=== PATIENT | male | born 1970 | race Caucasian/White ===

== ENCOUNTER 2020-08-18 11:21 | Outpatient (RCR) | payer BC, SELFPAY ==
[2013-08-09 09:54] VITALS: BMI 29.7
== END 2020-09-22 23:59 ==
LOC: IMMUN 11:21
PROVIDERS: PCP Family Medicine; Visit Provider Family Medicine
DX: Z23 Encounter for immunization (principal)
CPT/HCPCS: 0001A; 0002A; 91300

== ENCOUNTER 2021-05-31 14:07 | Outpatient (CLI) | payer BC, SELFPAY | END 2021-05-31 23:59 | disposition home or self-care (01) | LOC: LAB 14:08 | PROVIDERS: PCP Family Medicine; Visit Provider Family Medicine | DX: E78.5 Hyperlipidemia, unspecified (principal) ==

== ENCOUNTER 2021-06-04 10:46 | Day surgery (SDC) | payer BC, SELFPAY ==
--- NOTE | 2021-05-31 12:45 | EKG12_ITS ---
Test Reason : PRE OP Blood Pressure : / mmHG Vent. Rate : 085 BPM Atrial Rate : 085 BPM P-R Int : 136 ms QRS Dur : 094 ms QT Int : 374 ms P-R-T Axes : 051 065 046 degrees QTc Int : 445 ms Normal sinus rhythm Normal ECG Confirmed by MAHNAZ SUH, URVASHI ([id number]), video editor ARPIT VARGAS ([id number]) on 06/01/2021 1:50:28 PM Referred By: Reid Holloway Confirmed By:URVASHI JOYA MD
[2021-05-31 13:28] LABS: Hematocrit 41.7 % (40-54); Hemoglobin 15.4 g/dL (13.0-16.5); Mean Corp Hgb Conc 36.9 g/dL (32-36); Mean Corpuscular Hgb 36.7 pg (27.0-32.0); Mean Corpuscular Volume 99.3 fL (80-94); Mean Platelet Vol. 9.9 fl (6.2-12.0); Platelet Count 246 K/mm3 (150-450); RBC Distribution Width CV 11.8 % (11.6-14.6); RBC Distribution Width SD 43.3 fl (35.1-43.9); White Blood Count 8.8 K/mm3 (4.4-11.0)
[2021-06-04] VITALS (8 sets, daily range): BP systolic 148–178; BP diastolic 98–118; PULSE 79–100; RESP 16; TEMP 36.6–37.4; O2SAT 92–98; BMI 32.6
--- NOTE | 2021-06-04 | HERN_PTH ---
PATIENT: WARD ALEXIS LOC: [facility] [place]#:[id number] AGE/SX: 51/M ROOM: RE06/04/[address]: Dr. Reid Holloway MD : 1970 BED: DIS: 06/04/2021 SPEC #: [id number] RECD: 06/04/21 15:22 STATUS: ELINA OLERAYTaye #: [id number] DAVINA: 06/04/21 00:[address]: Reid Holloway DEPT: SURGICAL PATHOLOGY RECD BY: Abelino Finley ENTERED: 06/05/21 08:16 SP TYPE: Hernia OTHR DR: Víctor Huerta MD Tissues: HERNIA Procedures: Surgery Specimen Level II HEADER OPERATION: Laparoscopic right inguinal hernia repair with mesh PRE-OP DIAGNOSIS: Inguinal hernia of right side TISSUE SUBMITTED: Hernia sac and contents MICROSCOPIC DIAGNOSIS Hernia sac and contents: A piece of fibroadipose tissue, clinically hernia sac and contents. SJ:gogo 06/06/2021 MICROSCOPIC DESCRIPTION Slides are reviewed. GROSS DESCRIPTION Received in fixative is one container labeled with the patient's name and designated umbilical hernia sac and contents. The specimen consists of pieces of adipose tissue measuring 2 x 1.5 x 0.3 cm. The entire specimen is submitted in one cassette. / SJ:gogo 06/05/2021 TC:5 CPT: 41837
--- NOTE | 2021-06-04 11:05 | PCM.HP.BLA ---
History and Physical Date of Admission: 06/04/21 [facility] Visit Reasons: UMBILICAL/ INGUINAL HERNIA Chief Complaint: umbilical and right inguinal hernia Chart Snatcher Required: No Is patient in pain?: No Allergies No Known Allergies Allergy (Verified 04/16/21 13:52) Medications omeprazole 40 mg capsule,delayed release 40 mg PO DAILY #30 cap 04/16/21 [Rx Confirmed 04/16/21] tamsulosin 0.4 mg capsule 0.4 mg PO QHS #30 cap 04/16/21 [Rx Confirmed 04/16/21] [facility] Medical History (Updated 04/16/21 @ 16:[address] Reid Holloway MD) Acid reflux Cough COVID-19 Fatigue Inguinal hernia of right side without obstruction or gangrene SOB (shortness of breath) Umbilical hernia Surgical History (Updated 04/16/21 @ 13:50 by Eileen Nguyen) History of appendectomy Social History (Updated 04/16/21 @ 13:51 by Eileen Nguyen) Smoking Status: Never smoker alcohol intake: current substance use type: does not use HPI HPI HPI: WARD ALEXIS, is a 51 M who presents to the office today for surgical consultation regarding a suspected right inguinal hernia and a increasingly symptomatic umbilical hernia. The patient is referred by Dr. Víctor Huerta and a written surgical consult and recommendations will be returned to him. The patient has been a lifelong cigarette smoker and he continues to smoke. February 2020 when he was in [place] he complained of right groin pain and he was seen by a surgeon. Because he was soon moving to this location he elected not to have surgery. This area has gradually worsened. It is also of note that he has a known umbilical hernia. February 2021 he experienced Covid-19. He has had his return of taste and smell but still has a nighttime cough. He has not been diagnosed previously as having gastroesophageal reflux disease. He does smoke at least 9 cigarettes daily. He does have an interest in restopping again. He has nocturia nightly. He did not require hospitalization nor monoclonal antibody for his COVID-19 infection. He feels that he is making steady progress. ROS General General: Yes fatigue; No weight change, appetite, colon cancer, breast cancer or weakness HEENT HEENT: No difficulty swallowing, eye injury, eye surgery, swollen glands or hoarseness Endo Endocrine: No thyroid disease, diabetes mellitus, thyroid cancer, Hair loss, heat intolerance or cold intolerance Skin Skin: Yes changing moles; No rash Breast Breast: No left breast lump, right breast lump, nipple discharge, breast pain, abnormal mammogram, abnormal US or breast enlargement Musc Musculoskeletal: No back problems, arthritis, rheumatoid arthritis, gout or joint pain Cardio Cardiovascular: No murmur, pacemaker, heart disease, atrial fibrillation, high blood pressure, heart attack, heart stent, palpitations, shortness of breat with exertion or chest pain Psych Psychiatric: No depression, anxiety or hearing voices Resp Respiratory: Yes shortness of breath, No sleep apnea, Yes cough, No COPD, No asthma, No emphysema and No wheezing Gastro Gastrointestinal: No abdominal pain, No nausea or vomiting, No diarrhea, No constipation, No blood in stool, Yes acid reflux, No hemorrhoids, No ulcers, No gallbladder problem and No black,tarry stools [place] Hematologic: No blood thinners, No blood disorders, No bleeding, No anemia and No blood clots Neuro Neurologic: No system reviewed and no additional complaints, except as documented, No as per HPI, No abnormal gait, No abnormal hearing, No abnormal movements, No abnormal speech, No behavioral changes, No burning sensations, No confusion, No convulsions, No disequilibrium, No dizziness, No localized weakness, No frequent falls, No headache(s), No lack of coordination, No loss of vision, No memory loss, No numbness, No other visual disturbances, No radicular pain, No restless legs, No sensory deficit, No syncope, No tingling, No tremor(s), No weakness and No other Exam Const General: cooperative, healthy appearing, comfortable and no acute distress Nutritional Appearance: average body habitus Orientation: alert and awake [facility] Head: normal to inspection Eyes General: appearance normal, both eyes and all related structures Neck Neck: normal visual inspection Chest Other: Slightly increased anterior posterior diameter Resp Effort & Inspection: normal respiratory effort Auscultation: clear to auscultation bilaterally Cardio Rate: regular rate Rhythm: regular rhythm GI Other: Soft, mildly overweight, reducible umbilical hernia, normal bowel sounds Other: Testicles are descended without mass. Obvious right inguinal hernia, slight give left groin but much less prominent Musc Cervical Spine: normal cervical lordosis Skin General: no rashes or lesions noted Neuro General: patient alert and patient awake Extrem General: no calf tenderness Psych Appearance: grossly normal Assessment and Plan Assessment and Plan (1) Acid reflux: Status: Acute Qualifiers: Esophagitis presence: esophagitis presence not specified Qualified Code(s): K21.9 - Gastro-esophageal reflux disease without esophagitis (2) Cough: Status: Acute (3) Inguinal hernia of right side without obstruction or gangrene: Status: Acute (4) Umbilical hernia: Status: Acute Qualifiers: Obstruction and gangrene presence: without obstruction or gangrene Qualified Code(s): K42.9 - Umbilical hernia without obstruction or gangrene (5) Nocturia: Status: Acute Plan - Dr. Reid Holloway MD: Patient has nighttime cough. This may represent gastroesophageal reflux disease. I recommend to him starting omeprazole 40 mg daily. Conservative measures like not eating before bedtime avoiding alcohol and elevating the head of the bed of also been recommended. Because of his nocturia we will initiate him on tamsulosin 0.4 mg nightly. He is aware that subsequent to hernia surgery he will be at increased risk for urinary retention and may require a Parra catheter be placed. The patient has clearly an umbilical hernia and a right inguinal hernia. I propose for him a laparoscopic right inguinal herniorrhaphy as well as a mesh and umbilical herniorrhaphy and he is aware of the technique, benefit, risk, alternatives. Prior to this hernia repair I have strongly recommended the patient that he cease his tobacco use and it we have discussed the increased risk for recurrence if he is not able to do so. It is of additional note that on his clinical examination I demonstrated some very slight weakness on the left. It has been discussed with the patient that if an obvious left inguinal hernia is identified at the time of laparoscopy that I will add a laparoscopic left inguinal herniorrhaphy to his procedure. I will not disrupt the peritoneum on the left however unless a clear inguinal hernia is detected. He has had an opportunity to ask and have questions answered. He is employed at [employer] but he can do remote work. The patient's blood pressure was rather elevated today. He states that that is a new finding it was secondary to multiple work calls that had to be addressed. We have arranged for the patient to return for nurse visit in approxi-1 week for blood pressure rechecked to assure appropriate levels. The patient's had an opportunity to ask and have questions answered. We will schedule procedure at his discretion. I very much appreciate the kind opportunity of assisting with the surgical care. Copy: Dr Víctor Holloway M.D., F.A.C.S. I have re-examined the patient. There are no clinical changes since date of exam.. Reid Holloway M.D., F.A.C.S.
--- NOTE | 2021-06-04 11:09 | EX.PCM.DISCH ---
Discharge Instructions Procedure General Surgery Diet Discharge Diet: Light diet - advance as tolerated (if you have questions about your diet instructions, please talk to you doctor.) Activity Discharge Activity: May Not Drive (for 3-5 days or while taking narcotic pain medicine.) May shower in (days): 1 Lifting Restrictions: 10 pounds Dressing / Incision Call your doctor if your incision/area has: Continuous Slow Oozing, Sudden Increased Bleeding, Increased Pain/ Swelling, Increased Redness and Foul Smelling Discharge Call your doctor if you observe: Fever of 101 or Higher Suture Line Care: Avoid Pulling/Pushing and Avoid Pinching/Bending Additional Dressing/Incision Instructions:: Change or remove dressing in 4 days. Leave steri-strips in place for 1 week. Follow Up Care Please Follow Up With: Reid Holloway MD When: Call [phone] to make an appointment to be seen in about 10 days. Test Results: Test results from this visit will be discussed in further detail at your follow-up appointment, if applicable. Discharge Plan Admission Attending Provider: Reid Holloway Primary Care Provider: Víctor Huerta Discharge Orders/Prescriptions Prescriptions: No Action omeprazole 40 mg capsule,delayed release(DR/EC) 40 mg PO DAILY Qty: 30 RF: 2 tamsulosin [Flomax] 0.4 mg capsule 0.4 mg PO QHS Qty: 30 RF: 0 Other Ambulatory Orders: COVID 19 AG RAPID (RN COLLECT) (Routine) Timeframe: [id number] Facility: [facility] - Location: Laboratory Ordered By: Dr. Mike Price
[2021-06-04] MEDS: Lactated Ringers 1,000 ML 15 ML IV ×2 (12:16→14:30)
[2021-06-04] MEDS: Cefazolin 2 GM in 0.9% Normal Saline 100 ML IV (12:50)
[2021-06-04] MEDS: Bupivacaine Mpf 0.5% 30 ML VIAL (13:13)
--- NOTE | 2021-06-04 14:27 | PCM.OPRPT ---
Problems Associated Problem List Diagnoses (1) Umbilical hernia: (2) Inguinal hernia of right side without obstruction or gangrene: Report of Operation Date of Procedure: 06/04/21 Pre-Operative Diagnosis: Right inguinal hernia, umbilical hernia Post-Operative Diagnosis: Indirect right inguinal hernia, umbilical hernia Surgery/Procedure Performed:: Laparoscopic right inguinal herniorrhaphy with large Bard 3D max mesh Umbilical herniorrhaphy with [address] mesh Large right Bard 3D max: Lot [id number], reference [id number], expiry date 09/01/[address] hernia patch: Lot number [id number], reference #[id number], expiry date 10/02/2022 Description of Surgical Findings:: Timeout informed consent was obtained. 51-year-old gentleman was taken to the operating place upon the table underwent general endotracheal intubation esthesia. Ancef 2 g were given intravenously. The abdomen sterilely prepped and draped. 0.5% Marcaine was used as local anesthetic. Throughout the procedure 30 cc was used. An additional 30 cc of 1% lidocaine was used. A curvilinear incision was made at the inferior portion of the umbilicus sharp dissection performed in the retroumbilical skin the umbilical hernia sac contents identified defect measured approximately 2 cm in diameter. In a sun catheter was inserted the abdomen was insufflated with CO2 to a pressure of 10 mmHg pressure. 5 mm trochars were placed in the right left lower quadrant inspection revealed that there was some adhesions of sigmoid colon to the left lower quadrant I did not identify a distinct inguinal defect on the left. There was an obvious indirect defect on the right. A ileal inguinal nerve block was performed on the right. The peritoneum superior lateral to the internal ring was incised carried medially and then the peritoneum was completely dissected free using sharp and blunt dissection. Pubic tubercle identified. The urinary bladder was reflected. The direct indirect spaces were identified. A large Bard 3D max mesh was placed on the right. This was used to cover the defect area. The amount of dissection actually was larger than the size of the mesh. Carefully placed the mesh so as to overlie the cord structures and extend up upon the abdominal wall. It was secured medially and superiorly and laterally with secure strap. I felt that excellent positioning was achieved. I felt that the defect area in question was nicely covered. The peritoneum was then approximated to itself using secure strap and hemoclips. Complete obliteration to the mesh was achieved. The abdomen was allowed to deflate through an antiviral valve. A [address] mesh was placed at the umbilicus and it was wetted. The tails were secured with interrupted 0 Nurolon. The fascia was approximated transversely with simple sutures of 0 Nurolon with several of the sutures securing the mesh. That was then secured. The abdomen was reinsufflated. The mesh from the inside was inspected was noted to be nice and flattened completely intact. Beneath the mesh the greater omentum was completely covering the small bowel. The abdomen was again allowed to deflate through the antiviral valve. Skin edges were approximated opted for Monocryl subdermal stitches. Steri-Strips Telfa OpSite dressings applied. Sponge and instrument and needle counts were reported to the surgeon to be correct. Specimens umbilical hernia sac and contents. Drains none. Blood loss minimal. The patient was taken to the recovery area in satisfactory addition without apparent complication Redi Holloway M.D., F.A.C.S. Surgeon: Reid Holloway Type of Anesthesia: General and Local Anesthesiologist: Yuko Ovalle
[2021-06-04] MEDS: HYDROcodone Bitartrate/Apap 5/325 Tablet PO (15:50)
[2021-06-04] MEDS: Ketorolac 30 MG/ML Syringe IV (16:53)
== END 2021-06-04 23:59 | disposition home or self-care (01) ==
LOC: SDC 10:50 → AC 10:50
PROVIDERS: Anesthesiology; PCP Family Medicine; Referring Provider Surgery; Visit Provider Surgery
PROC: (CPT 49650; principal; 2021-06-04 13:00)
DX: K42.9 Umbilical hernia without obstruction or gangrene (principal); F17.210 Nicotine dependence, cigarettes, uncomplicated; K21.9 Gastro-esophageal reflux disease without esophagitis; Z86.16 Personal history of COVID-19; J45.909 Unspecified asthma, uncomplicated; K40.90 Unilateral inguinal hernia, without obstruction or gangrene, not specified as recurrent
CPT/HCPCS: 00830; 49650; 49652; 36415; 85027; 87426; 88302; 93005; J7120; C1781; J2405

== ENCOUNTER 2021-10-24 08:08 | Emergency (ER) | payer BC, SELFPAY ==
[2021-10-24 08:09] VITALS: BP 142/117; PULSE 100; RESP 18; TEMP 35.2; O2SAT 99; BMI 31.7
[2021-10-24] MEDS: Ketorolac 30 MG/ML Syringe IM (08:52)
--- NOTE | 2021-10-24 09:03 | VDLE_ITS ---
Reason For Study: pain RIGHT GSV is normal. CFV is compressible, spontaneous, phasic, competent and demonstrates normal augmentation. FV is compressible, spontaneous, phasic, competent and demonstrates normal augmentation. POP V is compressible, spontaneous, phasic, competent and demonstrates normal augmentation. T/P Trunk is compressible. PTV is compressible. RT PerV is compressible. Procedure This is a venous duplex using B-mode, color flow and spectral Doppler. Exam performed portable in ED. The exam was abbreviated due to the COVID 19 protocol. The exam was diagnostic. A preliminary report was called and/or faxed to Dr. Kennedy. VL/Venous Duplex US, Unilateral Interpretation Summary Deep veins of the right lower extremity are patent and compressible segmentally . There is no evidence of right lower extremity deep vein thrombosis. The right great sapheno us vein appears patent and compressible segmentally. Ordering Physician: Emily Kennedy Performed By: Abebe Miller RVT
--- NOTE | 2021-10-24 09:15 | RAD_ITS ---
STUDY: X-RAY - PELVIS AND RIGHT HIP REASON FOR EXAM: Male, 51 years old. Injury/Pain TECHNIQUE: 3 views of the pelvis and hip. COMPARISON: None. FINDINGS: There is a non-specific bowel gas pattern. There are calcified phleboliths. Normal bilateral iliac wings, sacroiliac joints and visualized sacrum. Normal bilateral superior and inferior pubic rami. Normal pubic symphysis. Normal bilateral ischial tuberosities. Normal visualized femoral head. Normal acetabulum. Normal hip joint. RAD/HIP, UNI W/ Pelvis 2-3 Views IMPRESSION: Normal x-ray examination of the pelvis and hip. Electronically Signed: Saturnino John MD at 9:42 EDT ,
--- NOTE | 2021-10-24 09:42 | EDS_ITS ---
HPI History of Present Illness Chief Complaint: Lower Extremity Injury Informant: patient Narrative Narrative: Patient is a 51-year-old male with recent right leg injury on Friday, 4 days ago. Patient stepped backwards off an 18 foot ledge and fell landing on his right side. He has had significant pain in his right leg and mostly in his knee and hip since. He was seen at [facility] where he had an x-ray of his hip and knee which did not show any acute process. He was placed in a knee immobilizer. He is been taking Motrin for pain. He admits that he forgot to take it this morning. He was driving to [place] to see orthopedics for follow-up on his knee as he was told by the other ER that he might need an MRI. He suddenly developed worsening pain in his bilateral knee and came to the emergency room instead to be evaluated. He states the pain is piercing. He notes that since his fall he has been having tingling down to his toes and on the top of his foot. He feels sore in his hip and has a lot of lateral and medial knee pain. He states that pain became stabbing while he was driving today. Denies any new injuries. Denies any other symptoms at this time. [facility] Medical History Acid reflux Alcohol use Anxiety Asthma Cough COVID-19 Fatigue Former smoker Heartburn History of stress test Inguinal hernia of right side without obstruction or gangrene Umbilical hernia Home Medications omeprazole 40 mg capsule,delayed release 40 mg PO DAILY #30 caps 04/16/21 [Rx Last Taken Unknown] tamsulosin 0.4 mg capsule (Flomax) 0.4 mg PO QHS #30 caps 04/16/21 [Rx Last Taken Unknown] hydrocodone-acetaminophen 5-325mg 5mg-325mg 1 tab PO Q6H PRN pain 3 days #12 tabs 10/24/21 [Rx Last Taken Unknown] Allergy/AdvReac Type Severity Reaction Status Date / Time Sulfa (Sulfonamide AdvReac Other Verified 10/24/21 08:13 Antibiotics) Surgical History History of appendectomy History of esophagogastroduodenoscopy (EGD) History of right inguinal hernia repair (~06/2021) History of umbilical hernia repair (~06/2021) Hx of arthroscopy of shoulder Hx of colonoscopy Social History Smoking Status: Former smoker alcohol intake: current substance use type: does not use ROS ROS ED Constitutional Constitutional ED: Denies chills or fever(s) Eyes Eyes: Denies change in vision Cardiovascular Cardiovascular: Denies chest pain or palpitations Respiratory/Chest Respiratory/Chest: Denies cough Gastrointestinal Gastrointestinal: Denies abdominal pain Musculoskeletal Musculoskeletal: Reports arthralgias and myalgias Integumentary Denies Abrasions or rash Neurologic Neurologic: Reports paresthesias and weakness Psychiatric Psychiatric: Denies anxiety EXAM Physical Exam Const Vital Signs: 10/24/21 08:09 10/24/21 11:44 Temperature 95.3 F L Temperature Source Temporal Pulse Rate 100 72 Respiratory Rate 18 15 Blood Pressure 142/117 H 124/69 H Blood Pressure Mean 125 87 Pulse Ox 99 98 Oxygen Delivery Method Room Air Room Air Positive well nourished and well developed General Appearance ED: well developed and NAD HEENT Reports moist mucous membranes normocephalic and atraumatic Neck full ROM and supple Chest Wall inspection of chest normal Resp normal respiratory effort and no retractions Cardio regular rate, regular rhythm and no murmurs GI non-distended Back/Spine no CVA tenderness Extremity Extremity Narrative: decreased ROM of right knee. Associated soft tissue swelling. Pain with logroll in the right hip. Patient unable to raise an extended leg off the bed. No pinpoint bony tenderness. Neuro oriented x3 and moves all extremities Motor Exam: strength 5/5 throughout; Negative for general weakness Psych mental status grossly normal Skin no wounds Rashes: no rashes MDM MDM MDM Narrative Medical decision making narrative: WePatient evaluated for worsening right leg pain. Patient in injury and was seen at another ER. He had x-rays performed and did bring the disc. He was actually going to follow-up with orthopedics when his pain became worse we came to emergency room. Patient is given dose of IM Toradol with significant improvement of his pain. He does have some localized swelling to his knee as well as tenderness with logroll of the hip. Films from outside ER reviewed by myself and I do not see any tibial plateau fracture or other acute fracture of the knee nor the hip. Hip x-rays repeated to rule out an occult fracture. This is interpreted by myself as well as radiology is negative. Venous duplex obtained which is negative for any acute DVT. Patient feels that the Motrin is not helping. I am concerned clinically that he could have partial tendon rupture as he does have pain over the distal quadricep muscle groups and is not able to raise his leg off the bed. He is placed back in a knee immobilizer. He is encouraged again to follow-up with orthopedics. He is given a short course of [place] for pain control. Radiography X-Ray: Right Hip, Read by ED Physician, Read by Radiologist, No Fracture and Normal Bony Alignment Diagnostic Testing: Clinical Impression(s) from Imaging Studies Hip/Pelvis X-Ray 10/24/21 09:15 IMPRESSION: Normal x-ray examination of the pelvis and hip. Electronically Signed: Saturnino John MD at 9:42 EDT , Discharge Plan Triage Chief Complaint: Lower Extremity Injury ED Provider: Emily Kennedy Dx/Rx/DC Orders Clinical Impression: Injury of knee, right, Pain in right leg Instructions: ED Knee Sprain Prescriptions: New hydrocodone-acetaminophen 5-325 mg tablet 1 tab PO Q6H PRN (Reason: pain) 3 Days Qty: 12 0RF No Action omeprazole 40 mg capsule,delayed release(DR/EC) 40 mg PO DAILY Qty: 30 2RF tamsulosin [Flomax] 0.4 mg capsule 0.4 mg PO QHS Qty: 30 0RF Primary Care Provider: Víctor Huerta Referrals: Fabián Mujica MD [STAFF PHYSICIAN] - As soon as possible Víctor Huerta MD [Primary Care Provider] - Disposition Disposition: Home, Self Care Discharge Date/Time: 10/24/21 11:45
[2021-10-24 11:44] VITALS: BP 124/69; PULSE 72; RESP 15; O2SAT 98
== END 2021-10-24 11:45 | disposition home or self-care (01) ==
PROVIDERS: Emergency Provider Emergency Medicine; PCP Family Medicine; Visit Provider Emergency Medicine
DX: S89.91XA Unspecified injury of right lower leg, initial encounter (principal); K21.9 Gastro-esophageal reflux disease without esophagitis; F41.9 Anxiety disorder, unspecified; J45.909 Unspecified asthma, uncomplicated; Z86.16 Personal history of COVID-19; Z79.899 Other long term (current) drug therapy; W17.89XA Other fall from one level to another, initial encounter; Z87.891 Personal history of nicotine dependence; M79.604 Pain in right leg
CPT/HCPCS: 73502; 93971; 96372; 99281; 99282

== ENCOUNTER → 2022-01-25 | Outpatient (CLI) | payer BC, SELFPAY ==
--- NOTE | 2022-01-25 12:21 | US_ITS ---
STUDY: SCROTUM ULTRASOUND REASON FOR EXAM: Male, 51 years old. Right-sided pain, mass TECHNIQUE: Ultrasound evaluation of the scrotum was performed with color Doppler and static adair-scale imaging. COMPARISON: None. FINDINGS: RIGHT TESTICLE INTRATESTICULAR: There is a normal size of the right testicle. The right testicle measures 5.0 x 3.6 x 2.3 cm. There is a homogenous echotexture. There is normal arterial and normal venous vascularity. There is no demonstrated right testicular mass or cyst. EXTRATESTICULAR: The epididymis is normal in size. The epididymis head measures 1.6 cm. There is normal vascularity of the epididymis. There is no demonstrated epididymal cystic structure. There is a small hydrocele. There are prominent extratesticular veins consistent with a varicocele, best demonstrated with VALSALVA. There is no demonstrated extratesticular mass or cyst. Patient''s palpable lump corresponds to the varicocele LEFT TESTICLE INTRATESTICULAR: The left testicle measures 5.3 x 3.7 x 2.5 cm. There is a homogenous echotexture. There is normal arterial and normal venous vascularity. There is no demonstrated left testicular mass or cyst. EXTRATESTICULAR: The epididymis is normal in size. The epididymis head measures 1.3 cm. There is normal vascularity of the epididymis. There is a well-defined cystic structure within the epididymis, without internal echoes, consistent with an epididymal cyst. There is a small hydrocele. There is no demonstrated varicocele. There is no demonstrated extratesticular mass or cyst. US/Testicular with Arterial Flow IMPRESSION: Normal bilateral testicles, no sonographic evidence of intratesticular mass or torsion Small bilateral hydroceles Right-sided varicocele corresponding to the palpable lump Left epididymal cyst. Electronically Signed: Mandeep Johnson MD at 14:19 EDT ,
== END | disposition home or self-care (01) ==
PROVIDERS: PCP Family Medicine; Referring Provider Family Medicine; Visit Provider Family Medicine
DX: N50.89 Other specified disorders of the male genital organs (principal)
CPT/HCPCS: 76870; 93976

== ENCOUNTER → 2022-11-27 | Outpatient (CLI) | payer BC, SELFPAY ==
[2022-11-27 15:13] LABS: Absolute Lymphocyte Count 2.68 X10^3/uL (0.83-4.51); Absolute Neutrophil Count 3.8 X10^3/uL (2.0-7.7); Basophil# 0.05 X10^3/uL; Basophil% 0.7 % (0-1); Eosinophil# 0.21 X10^3/uL; Eosinophils% 2.8 % (0-5); Hematocrit 45.2 % (40-54); Hemoglobin 15.7 g/dL (13.0-16.5); Lymphocyte # 2.68 X10^3/ul (0.83-4.51); Lymphocyte % 36.1 % (19-41); Mean Corp Hgb Conc 34.7 g/dL (32-36); Mean Corpuscular Hgb 36.1 pg (27.0-32.0); Mean Corpuscular Volume 103.9 fL (80-94); Mean Platelet Vol. 10.1 fl (6.2-12.0); Monocyte# 0.62 X10^3/uL; Monocyte% 8.4 % (0-10); NRBC Flagged by Analyzer 0 % (0-5); Neutrophil # 3.84 X10^3/uL (2.7-7.7); Neutrophil % 51.7 % (47-70); Platelet Count 292 K/mm3 (150-450); RBC Distribution Width CV 11.9 % (11.6-14.6); RBC Distribution Width SD 45.5 fl (35.1-43.9); Red Blood Count 4.35 M/mm3 (4.6-6.2); White Blood Count 7.4 K/mm3 (4.4-11.0)
[2022-11-27 16:16] LABS: ALB/GLOB Ratio 1.1 RATIO (0.9-2.4); AST(SGOT) 24 U/L (15-37); Alanine Aminotransfer ALT/SGPT 56 U/L (16-61); Alkaline Phosphatase 83 U/L (45-117); Anion Gap 7 (5-15); BUN 15 mg/dL (7-18); BUN/Creat Ratio 13.4 RATIO (10-20); Calcium,Total 9.2 mg/dL (8.5-10.1); Chloride 105 mmol/L (98-107); Creatinine, Serum 1.12 mg/dL (0.70-1.30); EST Glomerular Filtration Rate 74 mL/min (>60); Est Glom Filt Rate - Afr Amer 89 mL/min (>60); Globulin 3.8 g/dL (2.2-4.2); Glucose 171 mg/dL (74-106); Potassium 4.3 mmol/L (3.5-5.1); Protein, Total 7.8 g/dL (6.4-8.2); Sodium Level 138 mmol/L (136-145)
== END | disposition home or self-care (01) ==
LOC: MFPLAB 14:07
PROVIDERS: PCP Family Medicine; Visit Provider Family Medicine
DX: K57.92 Diverticulitis of intestine, part unspecified, without perforation or abscess without bleeding (principal)
CPT/HCPCS: 36415; 80053; 85025

== ENCOUNTER → 2022-11-27 | Outpatient (CLI) | payer BC, SELFPAY ==
--- NOTE | 2022-11-27 15:05 | CT_ITS ---
ACR Level 3 findings have been noted. An addendum which confirms receipt of the report will follow. STUDY: CT ABDOMEN AND PELVIS WITH CONTRAST REASON FOR EXAM: Male, 52 years old. DIVERTICULITIS RADIATION DOSAGE (If Supplied By Facility): CTDIvol = ( 15.40 ) mGy, DLP = ( 1127.11 ) mGycm TECHNIQUE: Transaxial images were obtained from the dome of the diaphragm to the symphysis pubis without oral contrast. Oral and amp;amp; IV Gastrografin and amp;amp; 100mL Isovue-370 was administered. Sagittal and coronal images were reconstructed. Individualized dose optimization techniques were used for this CT. COMPARISON: August 09, 2013. FINDINGS: The visualized lung bases are unremarkable. The visualized portions of the heart are within normal limits. Normal liver. Gallbladder contracted. Normal spleen. Normal pancreas. Normal bilateral adrenal glands. Normal right kidney. Normal left kidney. Normal visualized stomach. Oral contrast noted in the small bowel. Oral contrast noted in the colon. Appendix not identified. Normal abdominal aorta. Normal inferior vena cava. Normal retroperitoneum. Normal urinary bladder. Exophytic mass left posterior prostate superiorly measures 2.7 x 3.3 cm in transverse dimensions. Normal abdominal wall. Normal osseous structures. CT/Abdomen/Pelvis WITH Contrast IMPRESSION: Exophytic prostatic mass on the left. Urology consult recommended to exclude neoplasm. Electronically Signed: Jerald Bermudez MD at 19:16 EDT ,
== END | disposition home or self-care (01) ==
LOC: CT 15:04
PROVIDERS: PCP Family Medicine; Referring Provider Family Medicine; Visit Provider Family Medicine
DX: K57.92 Diverticulitis of intestine, part unspecified, without perforation or abscess without bleeding (principal)
CPT/HCPCS: 74177; Q9967

== ENCOUNTER → 2022-11-28 | Outpatient (CLI) | payer BC, SELFPAY ==
[2022-11-28 15:30] LABS: Lactic Acid 0.9 mmol/L (0.4-1.9)
== END | disposition home or self-care (01) ==
LOC: MFPLAB 14:07
PROVIDERS: PCP Family Medicine; Visit Provider Family Medicine
DX: R10.9 Unspecified abdominal pain (principal)
CPT/HCPCS: 36415; 83605

== ENCOUNTER 2022-12-19 14:24 | Outpatient (CLI) | payer BC, SELFPAY ==
[2022-12-19 16:01] LABS: PSA,Total - Annual Screen 2.85 ng/mL (0.00-4.00)
== END 2022-12-19 23:59 | disposition home or self-care (01) ==
LOC: LABSPEC 14:26 → LAB 14:26
PROVIDERS: PCP Family Medicine; Referring Provider Urology; Visit Provider Urology
DX: Z12.5 Encounter for screening for malignant neoplasm of prostate (principal)
CPT/HCPCS: 36415; 84153; G0103

== ENCOUNTER → 2023-01-13 | Outpatient (CLI) | payer BC, SELFPAY ==
--- NOTE | 2023-01-13 08:00 | PROSB_PTH ---
PATIENT: WARD ALEXIS LOC: [facility] U#:[id number] AGE/SX: 52/M ROOM: RE01/13/[address]: Dr. Maximino Allred MD : 1970 BED: DIS: 01/13/2023 SPEC #: [id number] RECD: 01/13/23 12:11 STATUS: ELINA RETaye #: [id number] DAVINA: 01/13/23 08:[address]: Maximino Allred DEPT: SURGICAL PATHOLOGY RECD BY: Edith Whitaker ENTERED: 01/13/23 12:11 SP TYPE: PROST BX OTHR DR: Dr. Víctor Huerta MD Tissues: Prostate, NOS Procedures: Surgery Specimen Level IV HEADER OPERATION: Prostate biopsy PRE-OP DIAGNOSIS: Elevated PSA TISSUE SUBMITTED: Prostate MICROSCOPIC DIAGNOSIS Prostate, needle core biopsy: Benign prostatic tissue. AM:gogo 01/14/2023 MICROSCOPIC DESCRIPTION Slides are reviewed. GROSS DESCRIPTION Received in fixative is one container labeled with the patient's name and designated prostate. The specimen consists of one elongated fragment of light ramirez-white soft tissue measuring 1.0 cm in length and 0.1 cm in diameter. The specimen is totally submitted in one cassette. / AM:gogo 01/13/2023 TC:5 CPT: 71914
--- NOTE | 2023-01-13 08:27 | FLU_PTH ---
PATIENT: WARD ALEXIS LOC: [facility] U#:[id number] AGE/SX: 52/M ROOM: RE01/13/[address]: Dr. Maximino Allred MD : 1970 BED: DIS: 01/13/2023 SPEC #: [id number] RECD: 01/14/23 08:56 STATUS: ELINA RETaye #: [id number] DAVINA: 01/13/23 08:[address]: Maximino Allred DEPT: CYTOLOGY RECD BY: Edith Whitaker ENTERED: 01/14/23 08:57 SP TYPE: Fluid OTHR DR: Dr. Víctor Huerta MD Tissues: Prostate, NOS Procedures: Special Stain Group II Surgery Specimen Level IV Cytospin Fluid HEADER OPERATION: Not noted PRE-OP DIAGNOSIS: Prostate cyst TISSUE SUBMITTED: Prostate cyst DIAGNOSIS CYTOLOGY Fine needle aspiration, prostate cyst (cytospin and cell block): Abundant sperm present. See comment. AM:gogo 01/15/2023 COMMENT The specimen contains abundant viable spermatozoa. Clinical correlation is suggested. Please see corresponding surgical specimen [id number]. CYTOLOGY STUDY Slides are reviewed. CYTOLOGY GROSS Received is 2 ml of yellow-orange thick cloudy fluid labeled with the patient's name and and designated per the requisition as prostate cyst. Submitted for cytology preparation including cell block. / gogo 01/14/2023 TC:5 CPT: 76109, 51722
== END | disposition home or self-care (01) ==
LOC: LABSPEC 11:35
PROVIDERS: PCP Family Medicine; Referring Provider Urology; Visit Provider Urology
DX: N42.83 Cyst of prostate (principal); R97.20 Elevated prostate specific antigen [PSA]
CPT/HCPCS: 87070; 87205; 88108; 88305; 88313

== ENCOUNTER → 2023-05-06 | Outpatient (CLI) | payer BC, SELFPAY ==
[2023-05-06 15:19] LABS: Bacteria 0 SEEN /hpf (None Seen); Mucous, Urine 0 SEEN /hpf (<or=2+); Red Blood Cells-Urine 0 SEEN /hpf (0-5); Squamous Epithelial Cells - UA 0 SEEN /hpf (0-5); White Blood Cells 0 SEEN /hpf (0-5)
[2023-05-06 18:07] LABS: Absolute Lymphocyte Count 2.42 X10^3/uL (0.83-4.51); Absolute Neutrophil Count 4.7 X10^3/uL (2.0-7.7); Basophil# 0.07 X10^3/uL; Basophil% 0.9 % (0-1); Eosinophil# 0.22 X10^3/uL; Eosinophils% 2.7 % (0-5); Hematocrit 41.5 % (40-54); Lymphocyte # 2.42 X10^3/ul (0.83-4.51); Lymphocyte % 29.7 % (19-41); Mean Corp Hgb Conc 36.1 g/dL (32-36); Mean Corpuscular Hgb 36.1 pg (27.0-32.0); Mean Corpuscular Volume 99.8 fL (80-94); Mean Platelet Vol. 10.3 fl (6.2-12.0); Monocyte# 0.75 X10^3/uL; Monocyte% 9.2 % (0-10); NRBC Flagged by Analyzer 0 % (0-5); Neutrophil # 4.66 X10^3/uL (2.7-7.7); Neutrophil % 57.3 % (47-70); Platelet Count 292 K/mm3 (150-450); RBC Distribution Width CV 11.8 % (11.6-14.6); RBC Distribution Width SD 43.3 fl (35.1-43.9); Red Blood Count 4.16 M/mm3 (4.6-6.2); White Blood Count 8.1 K/mm3 (4.4-11.0)
[2023-05-06 18:08] LABS: Color, Urine Yellow (Yellow); Glucose, Dipstick Normal (Normal); Ketone-Dipstick Negative (Negative); Leukocyte Esterase-Dipstick Negative /ul (Negative); Nitrite-Dipstick Negative (Negative); Occult Blood-Urine Negative /ul (Negative); Protein-Dipstick 15 mg/dl (Negative); Specific Gravity, Urine 1.015 (1.002-1.030); Urine Bilirubin Dipstick Negative (Negative); Urine Clarity Clear (Clear); Urine Urobilinogen 1 mg/dl (Normal); Urine pH 6.5 (5.0 - 8.0)
[2023-05-06 18:18] LABS: Vitamin B12 291 pg/mL (211-911)
[2023-05-06 18:26] LABS: ALB/GLOB Ratio 1.1 RATIO (0.9-2.4); AST(SGOT) 24 U/L (15-37); Alanine Aminotransfer ALT/SGPT 58 U/L (16-61); Albumin, Serum 3.9 g/dL (3.2-5.0); Alkaline Phosphatase 67 U/L (45-117); Anion Gap 1 (5-15); BUN 14 mg/dL (7-18); BUN/Creat Ratio 15.2 RATIO (10-20); Calcium,Total 8.9 mg/dL (8.5-10.1); Chloride 107 mmol/L (98-107); Cholesterol 307 mg/dL (200); Creatinine, Serum 0.92 mg/dL (0.70-1.30); EST Glomerular Filtration Rate 92 mL/min (>60); Est Glom Filt Rate - Afr Amer 111 mL/min (>60); Globulin 3.4 g/dL (2.2-4.2); Glucose 106 mg/dL (74-106); High Density Lipoprotein 38 mg/dL; Magnesium 2.1 mg/dL (1.6-2.6); Potassium 3.5 mmol/L (3.5-5.1); Protein, Total 7.3 g/dL (6.4-8.2); Sodium Level 137 mmol/L (136-145); T4 Free Direct 0.73 ng/dL (0.76-1.46); Thyroid Stim Hormone (TSH) 2.51 uIU/mL (0.358-3.74); Triglycerides 361 mg/dL; Very Low Density Lipoprotein 72 mg/dL (5-40)
== END | disposition home or self-care (01) ==
LOC: MTLAB 15:13
PROVIDERS: PCP Family Medicine; Referring Provider Family Medicine; Visit Provider Family Medicine
DX: I10 Essential (primary) hypertension (principal); R53.83 Other fatigue
CPT/HCPCS: 36415; 80053; 80061; 81001; 82607; 83735; 84439; 84443; 85025

== ENCOUNTER → 2023-05-09 | Outpatient (CLI) | payer BC, SELFPAY ==
[2023-05-09 12:57] LABS: Hemoglobin A1c 5.3 % (3.8-5.6)
[2023-05-12 18:07] LABS: Anti-Thyroglobulin AB < 1.0 IU/mL (0.0-0.9); Thyroglobulin, Serum Qt. 18.8 ng/mL (1.4-29.2); Thyroid Peroxidase AB 15 IU/mL (0-34)
== END | disposition home or self-care (01) ==
LOC: MTLAB 11:03
PROVIDERS: PCP Family Medicine; Referring Provider Family Medicine; Visit Provider Family Medicine
DX: R73.09 Other abnormal glucose (principal); R79.89 Other specified abnormal findings of blood chemistry
CPT/HCPCS: 36415; 83036; 84432; 86376; 86800

== ENCOUNTER → 2023-09-15 | Outpatient (CLI) | payer BC, SELFPAY | END | disposition home or self-care (01) | PROVIDERS: PCP Family Medicine; Referring Provider Family Medicine; Visit Provider Family Medicine | DX: L02.92 Furuncle, unspecified (principal) | CPT/HCPCS: 87070; 87205 ==

== ENCOUNTER → 2024-10-13 | Outpatient (CLI) | payer BC, SELFPAY ==
[2024-10-13 12:35] LABS: Mucous, Urine 0 SEEN /hpf (<or=2+)
[2024-10-13 15:24] LABS: Hematocrit 41.6 % (40-54); Hemoglobin 14.9 g/dL (13.0-16.5); Immature Granulocytes Count 0.030 X10^3/uL (0.0-0.0); Mean Corp Hgb Conc 35.8 g/dL (32-36); Mean Corpuscular Volume 100.5 fL (80-94); Mean Platelet Vol. 10.1 fl (6.2-12.0); NRBC Flagged by Analyzer 0 % (0-5); Platelet Count 261 K/mm3 (150-450); RBC Distribution Width CV 11.9 % (11.6-14.6); RBC Distribution Width SD 43.8 fl (35.1-43.9); Red Blood Count 4.14 M/mm3 (4.6-6.2); White Blood Count 7.6 K/mm3 (4.4-11.0)
[2024-10-13 16:01] LABS: AST(SGOT) 28 U/L (<=37); Alanine Aminotransfer ALT/SGPT 33 U/L (<=46); Albumin, Serum 4.6 g/dL (3.5-5.0); Alkaline Phosphatase 82 U/L (40-129); Anion Gap 15 (5-15); BUN 8 mg/dL (4-19); BUN/Creat Ratio 8.9 RATIO (10-20); Calcium,Total 9.4 mg/dL (7.6-11.0); Carbon Dioxide 22.6 mmol/L (21.0-32.0); Chloride 101 mmol/L (98-108); Cholesterol 265 mg/dL (<=200); Globulin 2.9 g/dL (2.2-4.2); Glucose 109 mg/dL (70-99); Low Density Lipoprotein Calc. 202 mg/dL; Magnesium 1.8 mg/dL (1.5-2.2); Potassium 3.7 mmol/L (3.3-5.1); Triglycerides 104 mg/dL; Very Low Density Lipoprotein 21 mg/dL (5-40); cholesterol:hdl ratio screen 6.21
[2024-10-13 16:26] LABS: Color, Urine Straw (Yellow); Glucose, Dipstick Normal (Normal); Ketone-Dipstick Negative (Negative); Leukocyte Esterase-Dipstick Negative /ul (Negative); Nitrite-Dipstick Negative (Negative); Occult Blood-Urine Negative /ul (Negative); Protein-Dipstick 15 mg/dl (Negative); Specific Gravity, Urine 1.015 (1.002-1.030); Urine Bilirubin Dipstick Negative (Negative)
[2024-10-13 17:58] LABS: Red Blood Cells-Urine 0-5 SEEN /hpf (0-5); Squamous Epithelial Cells - UA 0-5 SEEN /hpf (0-5)
== END | disposition home or self-care (01) ==
LOC: MTLAB 12:32
PROVIDERS: PCP Family Medicine; Referring Provider Family Medicine; Visit Provider Family Medicine
DX: E78.5 Hyperlipidemia, unspecified (principal); I10 Essential (primary) hypertension
CPT/HCPCS: 80053; 80061; 81001; 83735; 84443; 85025

== ENCOUNTER → 2024-10-27 | Outpatient (CLI) | payer BC, SELFPAY ==
--- NOTE | 2024-10-27 08:41 | CT_ITS ---
PROCEDURE: LOW DOSE CT LUNG SCREENING 10/27/2024 REASON FOR EXAM: SMOKER TECHNIQUE: LOW DOSE CT LUNG SCREENING Coronal and Sagittal reconstruction series were provided. One or more dose reduction techniques were used (e.g., Automated exposure control, adjustment of the mA and/or kV according to patient size, use of iterative reconstruction technique). REFERENCE LINK: [facility] Lung-RADS RADIATION DOSE SUMMARY: CTDlvol: 4 mGy DLP: 145 mGycm COMPARISON: No FINDINGS: On the left, series 2 image 152, 5 mm noncalcified upper lobe nodule. On the right, series 2, image 135, intrapulmonary lymph node. Central airways are patent. Mild bronchial wall thickening. Well inflated lungs. No consolidation, effusion, or pneumothorax. Unremarkable base of neck and axilla. Normal esophagus. Normal heart size. No acute vascular pathology. No acute chest wall findings. No acute upper abdominal findings. Multiple old rib fractures. Old right clavicle fracture. CT/Low Dose CT Lung Screening IMPRESSION: 5 mm noncalcified left upper lobe nodule. In the absence of old exams, this co uld represent a new nodule. Lung-RADS Category: 3 Other Significant Findings: Reading Location: [id number]
== END | disposition home or self-care (01) ==
LOC: CT 08:34
PROVIDERS: PCP Family Medicine; Referring Provider Family Medicine; Visit Provider Family Medicine
DX: F17.210 Nicotine dependence, cigarettes, uncomplicated (principal)
CPT/HCPCS: 71271

== ENCOUNTER → 2024-10-28 | Outpatient (CLI) | payer BC, SELFPAY ==
--- NOTE | 2024-10-29 14:17 | STRESSREP_ITS ---
Stress Test Report Date: 10/28/2024 Procedure: Exercise tolerance test Indications: Chest pain Consent: Per the patient Procedure: The patient exercised on a Guru protocol for 9 minutes achieving a peak heart rate of 164 bpm (97% predicted maximal heart rate) with a peak blood pressure 210/96 mmHg and a peak MET capacity of approximately 10.1 MET's. The baseline ECG demonstrated normal sinus rhythm. The peak exercise ECG demonstrated no significant ischemic changes. [There were no cardiac dysrhythmias pretest, during exercise, or recovery]. The functional capacity was considered normal for age. Patient had chest tightness at peak exercise. The examination was discontinued secondary to achieving target heart rate. Impression: 1. Technically adequate (percent predicted maximal heart rate greater than 85%) exercise tolerance test 2. Stress test is positive for exercise-induced chest pain. 3. Stress test test is negative for exercise-induced EKG changes of ischemia. 4. Functional capacity is normal for age This note was generated with [employer] software. It may contain incorrect words, spelling, and punctuation that were not noted in checking the note before signing.
== END | disposition home or self-care (01) ==
PROVIDERS: PCP Family Medicine; Referring Provider Family Medicine; Visit Provider Family Medicine
DX: R07.9 Chest pain, unspecified (principal)
CPT/HCPCS: 93017

== ENCOUNTER 2024-12-14 10:27 | Emergency (ER) | payer BC, SELFPAY ==
[2024-12-14] VITALS (8 sets, daily range): BP systolic 113–180; BP diastolic 71–112; PULSE 82–98; RESP 16–26; TEMP 36.2–37.1; O2SAT 96–98; BMI 34.4
--- NOTE | 2024-12-14 10:59 | EDS_ITS ---
HPI History of Present Illness Chief Complaint: Chest Pain Informant: patient Onset/Context/Timing Onset: Yesterday Activity at onset: gradual Timing: Continuous Quality: Positive for Tightness Location: Substernal Worsened By: Nothing Relieved By: Nothing Associated Symptoms: Positive for Dyspnea, Lightheadedness and Palpitations; Negative for Nausea, Vomiting, Diaphoresis, Cough, Fever or Acid Reflux Narrative Narrative: Patient presents with chest pain that began yesterday. Patient states it came on gradually. Patient states it has been constant. Patient describes it as a tightness. Patient states it is over the substernal area. Patient states nothing makes it better nothing makes it worse. Patient admits to some slight shortness of breath with it. Patient also admits to some palpitations and lightheadedness. Patient states he has been having hives that have been waxing and waning over the past several days. Patient denies any new soaps, foods, laundry detergents, fabric softeners, colognes, or other new exposures. CVD Risk Factors: Positive for Hypertension, Hypercholesterolemia and Smoking; Negative for Diabetes or Family History 1' </=55 PE Risk Factors: Negative for Recent Travel/Surgery, Recent Immobilization, Prior DVT or PE, Cancer or OCP + Smoking + >/=35 [facility] Medical History Chest pain Perirectal abscess Smoker Hyperlipidemia Family history of prostate problems Hypertension Anxiety Alcohol use Heartburn Former smoker Asthma History of stress test Umbilical hernia Inguinal hernia of right side without obstruction or gangrene Acid reflux Cough Fatigue COVID-19 Home Medications ?Medication ?Instructions ?Recorded ?Last Taken ?Type acetaminophen 500 mg tablet 1,000 mg PO DAILY 12/10/24 Unknown History (Tylenol Extra Strength) amlodipine 10 mg tablet 10 mg PO QDAY 12/10/24 Unkno wn History hydrochlorothiazide 25 mg tablet 25 mg PO QDAY 5 Unknown History ibuprofen 200 mg capsule 400 mg PO DAILY 12/10/24 Unk nown History losartan 50 mg tablet 50 mg PO QDAY 12/10/24 Unkno wn History omeprazole 20 mg capsule,delayed 20 mg PO QPM 12/10/24 Unknown History release Allergy/AdvReac Type Severity Reaction Status Date / Time Sulfa (Sulfonamide AdvReac Other Verified 12/14/24 10:33 Antibiotics) Family History Grandmother Heart disease Hypertension Grandfather Alcoholism Son , age 6, four [place]olasco accident No problems noted. Surgical History History of umbilical hernia repair (~06/2021) History of right inguinal hernia repair (~06/2021) Hx of colonoscopy History of esophagogastroduodenoscopy (EGD) Hx of arthroscopy of shoulder History of appendectomy Social History Smoking Status: Current every day smoker tobacco type: cigarettes alcohol intake: current alcohol intake frequency: 3 or more drinks per day details: 4-6 beers substance use type: does not use caffeine: Yes ROS ROS ED Constitutional Constitutional ED: Denies chills or fever(s) Eyes Eyes: Denies blurry vision or change in vision ENT ENT ED: Denies rhinorrhea or sore throat Cardiovascular Cardiovascular: Reports as per HPI, chest pain and palpitations Respiratory/Chest Respiratory/Chest: Reports dyspnea; Denies cough Gastrointestinal Gastrointestinal: Denies nausea or vomiting Genitourinary Genitourinary ED: Denies dysuria or hematuria Musculoskeletal Musculoskeletal: Reports neck pain; Denies back pain Integumentary Reports rash; Denies abscess Neurologic Neurologic: Reports headache(s); Denies weakness Allergic/Immunologic Allergic/Immunologic ED: Reports urticaria; Denies mouth swelling EXAM Physical Exam Const Vital Signs: 12/14/24 10:30 12/14/24 11:16 12/14/24 11:18 Temperature 97.2 F L Temperature Source Oral Pulse Rate 98 Respiratory Rate 16 Respiratory Effort Normal Non-Labored Short of Breath Blood Pressure 180/112 H Blood Pressure Mean 134 Pulse Ox 97 98 Oxygen Delivery Method Room Air Room Air 12/14/24 11:28 12/14/24 12:00 12/14/24 13:00 Temperature 98.7 F 98.4 F Temperature Source Oral Oral Pulse Rate 86 86 82 Respiratory Rate 21 H 16 20 H Respiratory Effort Blood Pressure 162/99 H 146/101 H 134/99 H Blood Pressure Mean 120 116 110 Pulse Ox 98 98 97 Oxygen Delivery Method Room Air Room Air 12/14/24 14:00 Temperature 97.7 F L Temperature Source Oral Pulse Rate 91 Respiratory Rate 17 Respiratory Effort Blood Pressure 113/71 Blood Pressure Mean 85 Pulse Ox 98 Oxygen Delivery Method Room Air Positive well nourished and well developed Constitutional Narrative: BMI is 34.4. General Appearance ED: well developed and NAD HEENT Reports moist mucous membranes normocephalic and atraumatic Neck supple and no JVD Resp normal respiratory effort and clear to auscultation bilaterally Cardio regular rate and regular rhythm GI soft to palpation, non-tender and non-distended Extremity normal to inspection General Extremety ED: Yes tenderness; Negative for edema General Extremity: Negative for edema Neuro oriented x3, CN's II-XII intact bilaterally and no sensory deficits noted Sensorium / Orientation: awake and alert Motor Exam: strength 5/5 throughout Psych mental status grossly normal Heart Score History: Slightly/Non-Suspicious ECG: Normal Age: >45 - <65 years Risk Factors: >/= 3 Risk Factors or History of CAD Troponin: </= Normal Limit Score: 3 MDM MDM MDM Narrative Medical decision making narrative: Differential diagnosis includes cardiac dysrhythmia, cardiac ischemia, pneumonia, bronchitis, allergic reaction, gastroesophageal reflux disease, and anxiety. EKG will be obtained to assess for cardiac dysrhythmia and cardiac ischemia. Chest x-ray will be obtained to assess for pneumonia and bronchitis. CBC will be obtained to assess for leukocytosis and anemia. Basic metabolic profile will be obtained to assess for electrolyte abnormality renal function. High-sensitivity troponin will be obtained to assess for cardiac ischemia. 2- hour repeat high-sensitivity troponin will be obtained to assess for ongoing cardiac ischemia. Lab Data Attestation: I reviewed the patient's lab results. Lab results narrative: CBC was reviewed and was within normal limits. Basic metabolic profile was reviewed and was within normal limits with the exception of an elevated glucose of 215. D-dimer was reviewed and was elevated at 1.32. Initial high- sensitivity troponin was reviewed and was less than 6. 2-hour repeat high- sensitivity troponin was reviewed and was less than 6. Labs: Laboratory Results - last 24 hr 12/14/24 12/14/24 11:02 13:08 WBC 9.3 RBC 4.06 L Hgb 15.0 Hct 40.2 MCV 99.0 H MCH 36.9 H MCHC 37.3 H RDW Std Deviation 42.3 RDW Coeff of Meng 11.6 Plt Count 327 MPV 9.7 Immature Gran % (Auto) 0.300 Neut % (Auto) 58.7 Lymph % (Auto) 30.1 Pierce % (Auto) 8.4 Eos % (Auto) 2.3 Baso % (Auto) 0.2 Absolute Neuts (auto) 5.5 Absolute Lymphs (auto) 2.80 Nucleated RBC % 0 D-Dimer Quant (PE/DVT) 1.32 H* Sodium 137 Potassium 3.3 Chloride 100 Carbon Dioxide 24.6 Anion Gap 13 BUN 10 Creatinine 1.04 Estim Creat Clear Calc 96.46 Est GFR (MDRD) Non-Af 86 BUN/Creatinine Ratio 9.3 L Glucose 215 H Calcium 9.1 Troponin T High Sens < 6 Troponin T Hi Sens 4Hr < 6 Radiography Chest X-Ray - ED: 2 View, Read by ED Physician, Read by Radiologist and No Acute Disease Diagnostic Testing: Clinical Impression(s) from Imaging Studies Chest X-Ray 12/14/24 11:45 IMPRESSION: No acute cardiopulmonary process Reading Location: [id number] Chest CTA 12/14/24 12:17 IMPRESSION: NORMAL CHEST CTA. NO EVIDENCE OF ACUTE PULMONARY EMBOLISM. Reading Location: [id number] PA and lateral chest x-ray was obtained. There are 2 views. On my independent interpretation, lung [place] are clear. There is normal cardiac silhouette. Bony thorax is normal. There is no acute process noted. Radiologist also interpreted the x-ray and agrees. Because of the elevated D-dimer, CTA of the chest was obtained. There is no evidence of acute pulmonary embolism or aortic dissection. This was interpreted by the radiologist and was also independently reviewed by myself. EKG Initial EKG: Attestation: I personally reviewed and interpreted this EKG as follows: Interpretation: Sinus Rhythm (96) and No Acute Injury Pattern Comments: EKG was obtained. On my independent interpretation, it showed a normal sinus rhythm with a rate of 96. WI interval, QRS interval, and QTc intervals were all normal. [place] was normal. There are no acute ST or T wave changes. Prior EKG tracings: available for review Prior: Unchanged (05/31/2021) Treatment and Re-Evaluation :: Patient was given aspirin. Patient felt better on reevaluation. Patient was advised of his findings. Patient has a HEART score of 3. Patient was advised that this is low risk for acute cardiac event. Patient was instructed to follow-up with his primary care physician in 5 to 7 days. Patient was instructed to return if worse in any way. Patient understood and was agreeable with the plan. All questions were answered. Discharge Plan Triage Chief Complaint: Chest Pain ED Provider: Nabil Ortiz Dx/Rx/DC Orders Clinical Impression: Chest pain, Hypertension, Smoker Instructions: ED Chest Pain, Uncertain Cause Prescriptions: No Action amlodipine 10 mg tablet 10 mg PO QDAY losartan 50 mg tablet 50 mg PO QDAY hydrochlorothiazide 25 mg tablet 25 mg PO QDAY omeprazole 20 mg capsule,delayed release(DR/EC) 20 mg PO QPM acetaminophen [Tylenol Extra Strength] 500 mg tablet 1,000 mg PO DAILY ibuprofen 200 mg capsule 400 mg PO DAILY Primary Care Provider: Víctor Huerta Referrals: Víctor Huerta MD [Primary Care Provider] - 5-7 Days Activity Restrictions/Additional Instructions: You may continue to use Claritin as needed for your hives. Print Language: Czech Disposition Disposition: Home, Self Care
[2024-12-14 11:25] LABS: Hematocrit 40.2 % (40-54); Hemoglobin 15.0 g/dL (13.0-16.5); Immature Granulocytes Count 0.030 X10^3/uL (0.0-0.0); Mean Corp Hgb Conc 37.3 g/dL (32-36); Mean Corpuscular Volume 99.0 fL (80-94); Mean Platelet Vol. 9.7 fl (6.2-12.0); NRBC Flagged by Analyzer 0 % (0-5); Platelet Count 327 K/mm3 (150-450); RBC Distribution Width CV 11.6 % (11.6-14.6); RBC Distribution Width SD 42.3 fl (35.1-43.9); Red Blood Count 4.06 M/mm3 (4.6-6.2); White Blood Count 9.3 K/mm3 (4.4-11.0)
--- NOTE | 2024-12-14 11:45 | RAD_ITS ---
PROCEDURE: CHEST PA AND LATERAL 12/14/2024 REASON FOR EXAM: CHEST PAIN TECHNIQUE: Procedure Code: RADCXR Modality: DX Procedure: CHEST PA AND LATERAL COMPARISON: October 27, 2024 FINDINGS: Hardware: EKG leads are present Heart: Normal Mediastinum: Normal Lungs: Clear. No pneumothorax or pleural effusion. Bones: Mild curvature thoracic spine to the right. RAD/Chest PA and Lateral IMPRESSION: No acute cardiopulmonary process Reading Location: [id number]
[2024-12-14 11:48] LABS: Anion Gap 13 (5-15); BUN 10 mg/dL (4-19); BUN/Creat Ratio 9.3 RATIO (10-20); Calcium,Total 9.1 mg/dL (7.6-11.0); Carbon Dioxide 24.6 mmol/L (21.0-32.0); Chloride 100 mmol/L (98-108); Estimated Creatinine Clearance 96.46 ml/min (50-250); Glucose 215 mg/dL (70-99); Potassium 3.3 mmol/L (3.3-5.1); Troponin T High Sensitivity < 6 ng/L (<=22)
[2024-12-14 11:53] LABS: D-Dimer Quantitative (DVT/PE) 1.32 FEU/ug/m (0.27-0.49)
--- NOTE | 2024-12-14 12:00 | ED.RN ---
received call from lab. D-dimer 1.32Dr Angel notified
--- NOTE | 2024-12-14 12:17 | CT_ITS ---
PROCEDURE: CTA CHEST W/WO CONTRAST 12/14/2024 REASON FOR EXAM: ELEVATED D-DIMER TECHNIQUE: Procedure Code: CTCTACHWW Modality: CT Procedure: CTA CHEST W/WO CONTRAST Multiplanar Sagittal and Coronal images were obtained. 3D post processing was performed CONTRAST: Isovue 370 VOLUME: 100 mL One or more dose reduction techniques were used (e.g., Automated exposure control, adjustment of the mA and/or kV according to patient size, use of iterative reconstruction technique). RADIATION DOSE SUMMARY: CTDlvol: 9.75 mGy DLP: 497.68 mGycm COMPARISON: Prior study dated October 27, 2024. FINDINGS: Hardware: None Lymph nodes: Small benign-appearing bilateral axillary lymph nodes. Small benign-appearing lymph node seen in the mediastinum. Heart: The heart is nonenlarged. No coronary artery calcification is seen. Thoracic Aorta: No thoracic aortic aneurysm or dissection. Pulmonary Vessels: No evidence of pulmonary embolism. Lungs and Airways: The lungs are clear. Pleura: No pleural effusion. Upper Abdomen: Unremarkable Bones: Mild degenerative changes. CT/CTA Chest W/WO Contrast IMPRESSION: NORMAL CHEST CTA. NO EVIDENCE OF ACUTE PULMONARY EMBOLISM. Reading Location: [id number]
[2024-12-14 13:54] LABS: Troponin T High Sens 4 HR < 6 ng/L (<=22)
== END 2024-12-14 15:18 | disposition home or self-care (01) ==
PROVIDERS: Emergency Provider Emergency Medicine; PCP Family Medicine; Visit Provider Emergency Medicine
DX: R07.9 Chest pain, unspecified (principal); E78.5 Hyperlipidemia, unspecified; I10 Essential (primary) hypertension; Z79.899 Other long term (current) drug therapy; K21.9 Gastro-esophageal reflux disease without esophagitis; Z90.49 Acquired absence of other specified parts of digestive tract; F17.210 Nicotine dependence, cigarettes, uncomplicated
CPT/HCPCS: 71046; 71275; 80048; 84484; 85025; 85379; 93005; 99284; Q9967; A4216

== ENCOUNTER → 2025-01-19 | Outpatient (CLI) | payer BC, SELFPAY ==
--- NOTE | 2025-01-19 12:22 | CT_ITS ---
PROCEDURE: LIMITED CHEST CT CARDIAC ONLY 01/19/2025 REASON FOR EXAM: ABNORMAL STRESS TECHNIQUE: Procedure Code: [id number] Modality: CT Procedure: LIMITED CHEST CT CARDIAC ONLY One or more dose reduction techniques were used (e.g., Automated exposure control, adjustment of the mA and/or kV according to patient size, use of iterative reconstruction technique). RADIATION DOSE SUMMARY: CTDlvol: 127.28 mGy DLP: 2603.39 mGycm COMPARISON: Thoracic CT of 12/14/2024. CT/Limited Chest CT Cardiac Only IMPRESSION: Diffuse fatty infiltration of the liver is seen Limited imaging of the lungs demonstrates no acute process. No pleural effusion or pneumothorax is seen in visualized areas. No adenopathy is noted. The visualized upper abdomen demonstrates no other significant abnormality. Reading Location: [id number]
--- NOTE | 2025-01-19 12:22 | CT_ITS ---
PROCEDURE: LIMITED CHEST CT CARDIAC ONLY 01/19/2025 REASON FOR EXAM: ABNORMAL STRESS TECHNIQUE: Procedure Code: [id number] Modality: CT Procedure: LIMITED CHEST CT CARDIAC ONLY One or more dose reduction techniques were used (e.g., Automated exposure control, adjustment of the mA and/or kV according to patient size, use of iterative reconstruction technique). RADIATION DOSE SUMMARY: CTDlvol: 127.28 mGy DLP: 2603.39 mGycm COMPARISON: Thoracic CT of 12/14/2024. CT/Limited Chest CT Cardiac Only IMPRESSION: Diffuse fatty infiltration of the liver is seen Limited imaging of the lungs demonstrates no acute process. No pleural effusion or pneumothorax is seen in visualized areas. No adenopathy is noted. The visualized upper abdomen demonstrates no other significant abnormality. Reading Location: [id number]
[2025-01-19 12:32] VITALS: BP 142/96; PULSE 71; RESP 18; O2SAT 97; BMI 33.3
[2025-01-19 12:48] VITALS: BP 139/85; PULSE 71
[2025-01-19] MEDS: Nitroglycerin SL (ED/IMG/CATH) 0.4 MG TABLET SL (12:48)
[2025-01-19] MEDS: 0.9% Saline Lock 10 ML Syringe IV (12:50)
[2025-01-19 12:56] VITALS: BP 139/85; PULSE 71; RESP 16; O2SAT 97
--- NOTE | 2025-01-20 07:05 | CCTA.WCONT ---
CCTA w/Cont Coronary Arteries Date of Study:: 01/19/25 Abnormal stress test Coronary Calcium Scoring: High-resolution Computed Tomographic imaging of the chest was performed on [01/19/2025], with particular attention paid to the coronary arteries. Intravenous contrast agent was administered per protocol and images reconstructed and displayed. Motion artifact was noted and images are suboptimally reconstructed. LEFT MAIN CORONARY ARTERY: Arises from the left coronary cusp and is noted to be normal bifurcates the left anterior descending artery and left circumflex artery. [] LEFT ANTERIOR DESCENDING CORONARY ARTERY: Medium size vessel with focal calcification and mild soft plaque noted but no high-grade stenosis present. [] LEFT CIRCUMFLEX CORONARY ARTERY: Mild proximal calcification with no significant stenosis present [] RIGHT CORONARY ARTERY: Dominant vessel with no significant calcification present and no evidence of coronary stenosis present. [] THORACIC AORTA: [] PULMONARY ARTERY: [] LEFT ATRIUM/APPENDAGE: [] MITRAL VALVE: [] AORTIC VALVE: [] LEFT VENTRICLE: [] CORONARY CALCIUM SCORE: [] Calcium Scoring Interpretation: Different methods to categorize the overall amount of coronary plaque. Overall amount CAC SIS Visual of coronary plaque P1 Mild -100 <2 1-2 vessels with mild amount of plaque P2 Moderate 101-300 3-4 1-2 vessels with moderate amount, 3 vessels with mild amount of plaque P3 Severe 301-999 5-7 3 vessels with moderate amount, 1 vessel with severe amount of plaque P4 Extensive >1000 >8 2-3 vessels with severe amount of plaque Conclusion: CT angio with mild plaque noted in the midsegment of the LAD and mild focal calcification in the LAD and circumflex artery.
== END | disposition home or self-care (01) ==
PROVIDERS: PCP Family Medicine; Referring Provider Internal Medicine Cardiovascular Disease; Visit Provider Internal Medicine Cardiovascular Disease
DX: R07.9 Chest pain, unspecified (principal)
CPT/HCPCS: 75574; 76380; Q9967; A4216